=== PATIENT | male | born 1955 | race Caucasian/White ===

== ENCOUNTER → 2016-09-29 | Outpatient (CLI) | payer OTHER ==
[~2016-09-29] MED LIST: ENAL10TA88 PO
[2016-09-29 12:32] LABS: BASO % 0.2 %; BASO ABS # 0.01 K/uL (0-0.2); COMPLETE YES; EOS % 1.2 %; HEMATOCRIT 45.7 % (42-52); IG% 0.2 %; LYMPH % 19.5 %; LYMPH ABS # 1.25 K/uL (1.2-3.4); MEAN CORPUSCULAR HEMOGLOBIN 30.3 pg (25-34); MEAN CORPUSCULAR HGB CONC 33.3 g/dl (32-36); MEAN PLATELET VOLUME 9.1 fL (7.4-10.4); MONO % 6.5 %; NEUT % 72.4 %; PLATELET COUNT 214 K/uL (130-400); RED BLOOD COUNT 5.02 M/uL (4.7-6.1); WHITE BLOOD COUNT 6.42 K/uL (4.8-10.8)
[2016-09-29 13:07] LABS: ALT/SGPT 34 U/L (12-78); AST/SGOT 16 U/L (15-37); BLOOD UREA NITROGEN 18 mg/dl (7-18); CARBON DIOXIDE 29 mmol/L (21-32); CHLORIDE 108 mmol/L (98-107); GLUCOSE 99 mg/dl (70-99); POTASSIUM 4.2 mmol/L (3.5-5.1); SODIUM 140 mmol/L (136-145)
[2016-09-29 13:12] LABS: ALB/GLOB RATIO 1.2 (0.9-2); ALKALINE PHOSPHATASE 69 U/L (45-117); CHOLESTEROL 169 mg/dl (0-200); CHOLESTEROL/HDL RATIO 3.4; HDL CHOLESTEROL 50 mg/dl; LDL CHOLESTEROL CALCULATED 100 mg/dl; TRIGLYCERIDES 97 mg/dl (0-150); VERY LOW DENSITY LIPOPROT CALC 19 mg/dl
== END | disposition home or self-care (01) ==
LOC: C.LABPBG 07:52
PROVIDERS: ATTEND Physician Assistant
DX: Z00.00 Encounter for general adult medical examination without abnormal findings (principal); N40.0 Benign prostatic hyperplasia without lower urinary tract symptoms; Z12.5 Encounter for screening for malignant neoplasm of prostate; I10 Essential (primary) hypertension

== ENCOUNTER → 2016-12-05 | Outpatient (CLI) | payer OTHER ==
[2016-12-05 19:51] LABS: LYME DISEASE AB IGG NEG (NEG); LYME DISEASE AB IGM NEG (NEG)
== END | disposition home or self-care (01) ==
LOC: C.LABPBG 11:26
PROVIDERS: ATTEND Internal Medicine
DX: M79.1 Myalgia (principal)

== ENCOUNTER → 2017-01-17 | Outpatient (CLI) | payer OTHER ==
[2017-01-17 16:48] LABS: BASO % 0.1 %; BASO ABS # 0.01 K/uL (0-0.2); COMPLETE YES; EOS % 1.3 %; HEMATOCRIT 44.1 % (42-52); IG% 0.2 %; LYMPH % 18.3 %; LYMPH ABS # 1.51 K/uL (1.2-3.4); MEAN CELL VOLUME 89.1 fL (80-100); MEAN CORPUSCULAR HEMOGLOBIN 30.1 pg (25-34); MEAN CORPUSCULAR HGB CONC 33.8 g/dl (32-36); MEAN PLATELET VOLUME 8.4 fL (7.4-10.4); MONO % 6.3 %; NEUT % 73.8 %; PLATELET COUNT 198 K/uL (130-400); RED BLOOD COUNT 4.95 M/uL (4.7-6.1); WHITE BLOOD COUNT 8.23 K/uL (4.8-10.8)
[2017-01-17 17:08] LABS: BLOOD UREA NITROGEN 15 mg/dl (7-18); BUN/CREATININE RATIO 14.8 (10-20); CALCIUM 9.1 mg/dl (8.5-10.1); CARBON DIOXIDE 26 mmol/L (21-32); CHLORIDE 105 mmol/L (98-107); CREATININE 1.04 mg/dl (0.60-1.40); GLUCOSE 87 mg/dl (70-99); SODIUM 138 mmol/L (136-145)
== END | disposition home or self-care (01) ==
LOC: C.CPL 15:53
PROVIDERS: ATTEND Orthopaedic Surgery
DX: M75.122 Complete rotator cuff tear or rupture of left shoulder, not specified as traumatic (principal)

== ENCOUNTER → 2017-02-09 | Day surgery (SDC) | payer OTHER ==
[2017-01-24 08:12] VITALS: Ht 179.6 cm; Wt 110.9 kg
[~2017-02-09] VITALS: Ht 179.6 cm; Wt 110.9 kg
[~2017-02-09] MED LIST changes: +ATROPINE SULFATE 0.1 MG/ML 5ML SYR IV PRN; +BUPIVACAINE/EPINEPHRINE 0.25% 1:200,000 30 ML VIAL ONE; +CEFAZOLIN 2000MG IV PUSH 10 ML IV SCH; +ERGO500037 PO; +EpHEDrine SULFATE INJ 50 MG/ML AMP IV PRN; +EpINEphrine INJ 1MG/ML AMP 1 MG/ML AMP ONE; +HYDR-5688 PO; +KETO10TA PO; +KETOROLAC TROMETHAMINE 30 MG/ML VIAL IV. PRN; +LACTATED RINGER'S 1000ML 1,000 ML IV SCH; +LACTATED RINGER'S 1000ML 500 ML IV SCH; +LIDOCAINE HCL 1% MPF 2 ML VIAL ONE; +LIDOCAINE HCL 2% 2 ML VIAL (20MG/ML) ONE; +MELO15TA4 PO; +MIDAZOLAM HCL 1 MG/ML 2ML VIAL ONE; +ONDANSETRON INJ 2 MG/ML 2 ML VIAL IV PRN; +ONDANSETRON INJ 2 MG/ML 2 ML VIAL ONE; +OXYC-57 PO; +PROPOFOL IV EMULSION 10 MG/ML 20 ML VIAL IV ONE; +ROPIVACAINE 0.5% 5 MG/ML 30 ML VIAL ONE; +SODIUM CHLORIDE 0.9% 1000ML 1,000 ML IV SCH; +TAMS0.4C38 PO
--- NOTE | 2017-02-09 07:56 | History & Physical Bridge - [place] ---
H&P Re-Evaluation Bridge Note: I have examined the patient, reviewed the History & Physical and in the interval since the performance of the History & Physical I have noted the following changes of clinical significance: No changes noted
--- NOTE | 2017-02-09 10:12 | [facility] Post Operative Brief Note ---
Immediate Operative Summary Operative Date Feb 09, 2017. Pre-Operative Diagnosis Left Shoulder Full Thickness Rotator Cuff Tear Post-Operative Diagnosis Same Procedure(s) Performed Left Shoulder Arthroscopy, Medium Rotator Cuff Repair, Acromioplasty, Biceps Tenotomy, Distal Clavicle Resection Surgeon Dr. Randolph Vision Impaired Teacher Surgeon(s) Catalina Forman PA-C Estimated Blood Loss 5 ml Findings as above Specimens None Complication(s) None Disposition Recovery Room / PACU
--- NOTE | 2017-02-09 10:29 | Discharge Instructions-SurgCtr ---
Discharge Instructions Date of Service Feb 09, 2017. Visit Reason for Visit: Left Shoulder Full Thickness Rotator Cuff Tear Discharge Discharge Diagnosis / Problem: SAME ABOVE Discharge Goals Goal(s): Decrease discomfort, Improve function Medications Stopped Medications Name(s): DEBBY STOPPED Restart Stopped Medication(s): MAY RESTART WHEN FINISHED WITH TORADOL TAKE TORADOL EVERY 8 HOURS WITH FOOD Activity Recommendations Activity Limitations: as noted below Lifting Limitations: until after follow-up appointment Exercise/Sports Limitations: until after follow-up appointment Anesthesia . Post Anesthesia Instructions: If you have had General Anesthesia or IV Sedation: * Do not drive today. * Resume driving when surgeon permits. * Do not make important decisions or sign legal documents today. * Call surgeon for: 1. Temperature elevations greater than 101 degrees F. 2. Uncontrollable pain. 3. Excessive bleeding. 4. Persistent nausea and vomiting. 5. Medication intolerance (nausea, vomiting or rash). * For nausea and vomiting use only clear liquids such as: tea, soda, bouillon until nausea subsides, then gradually increase diet as tolerated. * If you have any concerns or questions, call your surgeon's office. If physician is unavailable and it is an emergency, call 911 or go to the nearest emergency room. . Instructions / Follow-Up Instructions / Follow-Up MEDICATIONS: * Resume previous medications unless instructed otherwise by your surgeon. * Always take pain medication on a full stomach or with food to avoid upset stomach. * Do not drink alcohol or drive while taking narcotics. * Ibuprofen or Tylenol may be taken if narcotic not needed. SPECIAL CARE INSTRUCTIONS: __ None _X_ Keep extremity elevated and iced x 48 hours; apply ice 20-30 minutes 8-10 times/day. May remove at night. __ Sling __24 hrs/day __ Remove at night _X_ Shoulder Immobilizer (MAY REMOVE AFTER 48 HOURS ONLY TO SHOWER AND FOR THERAPY) _X_ 24 hrs/day __ Remove at night _X_ Dressing __ Maintain until seen in office, may shower with plastic over site _X_ Remove dressings in 24-48 hours and then may shower _X_ Cover incisions with band-aids after showering __ Do not remove steri-strips Call physician if chills or temperature rises above 102 degrees or pain unrelieved by prescribed pain medications at . . Diet Recommendations Home Diet: no limitations Fluid Restriction: None Procedures Procedures Performed: Left Shoulder Arthroscopy, Medium Rotator Cuff Repair, Acromioplasty, Biceps Tenotomy, Distal Clavicle Resection Pending Studies Studies pending at discharge: no Work Instructions Return To Work: after follow-up Lifting Limitations: NO LIFTING WITH LEFT ARM Medical Emergencies . Who to Call and When: Medical Emergencies: If at any time you feel your situation is an emergency, please call 911 immediately. . Non-Emergent Contact Non-Emergency issues call your: Primary Care Provider Call Non-Emergent contact if: you have a fever, temperature is above 101.5 . . "Provider Documentation" section prepared by Haresh Forman. .
[2017-02-09] MEDS: HYDROmorphone INJ 1 MG/ML SYR IV PRN ×2 (10:35→10:48)
--- NOTE | 2017-02-09 10:43 | OPERATIVE REPORT ---
DATE OF OPERATION: 02/09/2017 PREOPERATIVE DIAGNOSIS: Severe external impingement, rotator cuff tear of the left shoulder. POSTOPERATIVE DIAGNOSES: Severe external impingement, rotator cuff tear and biceps tendinopathy of the left shoulder. PROCEDURE: Left total diagnostic arthroscopy with limited debridement, distal clavicle resection to include coplaning the undersurface of the clavicle, acromioplasty, medium sized rotator cuff repair and arthroscopic biceps tenodesis. SURGEON: Mitch Randolph DO. OFFICE CLERK ROUTINE: Haresh Forman PA-C, whose assistance was necessary for positioning the arm and helping with instrumentation. ANESTHESIA: General with a left interscalene nerve block. COMPLICATIONS: None. CONDITION: Stable to PACU. INDICATIONS: Mayank is a pleasant 62-year-old male who has been having a 3-year history of left shoulder pain. X-rays, MRI and clinical examination were diagnostic for a medium sized rotator cuff tear and severe external impingement. After failing conservative treatment, he elected to undergo arthroscopy. DESCRIPTION OF PROCEDURE: On 02/09/2017, he arrived at [facility] for the above procedure. He was seen in the preoperative holding area and the operative extremity was identified and signed. He was given a preoperative antibiotic and a left interscalene nerve block. He was taken back to the operating room, laid on the table in supine position and put under general anesthesia. He was then put to the beachchair position. The left shoulder was prepped and draped in sterile fashion. Time-out was done and the patient and operative extremity was properly identified. A scope was introduced in the posterior portal. Diagnostic arthroscopy showed some slight chondral changes on the far anterior humeral head. Other than that, the cartilage looked well. There was some fraying of the biceps tendon. There was some tearing of the superior labrum and some fraying of the anterior labrum. The remainder of the labrum looked intact. There was a 90% partial thickness articular tear of the supraspinatus. The infraspinatus, teres minor and subscapularis were all checked and intact. An anterior portal was made. A shaver was used to do a limited debridement of the intraarticular structures and the biceps tendon was tenotomized for later tenodesis. The scope was then put into the subacromial space. A lateral portal was made. A shaver was used to do a complete subacromial and subdeltoid bursectomy. An ablator was used to tease the coracoacromial ligament off the undersurface of the acromion and a 5-0 rm was used to complete an acromioplasty of a very large Bigliani type 3 acromion. A shaver was used to remove any excess debris and attention was turned to the rotator cuff. An additional anterolateral portal was made and Shilpa cannulas were placed in each of the lateral portals. The cuff tear was completed from the bursal side. The greater tuberosity was then prepared with a ring curette and a microfracture. The rotator cuff was then fixed with an Arthrex SpeedBridge configuration using BioComposite SwiveLock suture anchors and FiberTape. This gave a nice knotless SpeedBridge repair. The long head of the biceps tendon was tagged with an Arthrex FiberLink suture and incorporated into the anterior medial anchor to complete an arthroscopic biceps tenodesis. Attention was turned to the distal clavicle. There were large osteophytes hanging off the undersurface of the distal clavicle that were impinging upon the supraspinatus. A 5-0 rm was used to coplane the undersurface of the clavicle to open up the supraspinatus outlet. Multiple pictures were taken. The scope was placed back into the glenohumeral joint and the articular margin of the rotator cuff had been restored. Pictures were taken. Arthroscopic instruments were removed from the shoulder. Portal sites were closed with 3-0 nylon. He was then placed in a soft dressing and an abduction arm sling. He was then extubated, transferred to a [facility] and taken to the postanesthesia care unit in stable condition. He tolerated the procedure well. I attest to the content of the Intraoperative Record and any orders documented therein. Any exception s are noted below.
[2017-02-09 11:19] VITALS: TEMP 36.1
[2017-02-09] MEDS: OXYCODONE/ACETAMINOPHEN 5-325 TAB PO PRN ×2 (11:28→12:21)
[2017-02-09 12:34] VITALS: BP 113/75; PULSE 75; O2SAT 95
--- NOTE | 2017-02-09 12:40 | Anesthesiology Progress Note ---
Anesthesia Post Op Note Date & Time Feb 09, 2017 at 12:40 Vital Signs Pain Intensity: 3 Vital Signs Past 12 Hours Date Time Temp Pulse Resp B/P (MAP) Pulse Ox O2 Delivery O2 Flow Rate FiO2 02/09/17 12:34 75 16 113/75 (88) 95 Room Air 02/09/17 11:19 36.1 80 16 117/75 (89) 94 Room Air 02/09/17 11:06 36.6 77 12 156/93 95 Room Air 02/09/17 11:06 76 10 02/09/17 11:06 76 10 156/93 96 02/09/17 11:01 74 12 02/09/17 11:01 74 12 138/94 99 02/09/17 10:56 79 14 145/91 95 02/09/17 10:56 80 14 02/09/17 10:51 74 11 133/93 98 02/09/17 10:51 74 11 02/09/17 10:46 74 9 136/92 98 02/09/17 10:46 76 9 02/09/17 10:45 78 12 02/09/17 10:45 77 12 98 02/09/17 10:41 138/99 02/09/17 10:40 76 14 02/09/17 10:40 76 14 99 02/09/17 10:36 152/102 02/09/17 10:35 79 12 02/09/17 10:35 78 12 99 02/09/17 10:31 151/98 02/09/17 10:30 82 20 98 02/09/17 10:30 82 20 02/09/17 10:26 163/100 02/09/17 10:25 36.6 83 16 163/100 98 Diffusion Mask 6 02/09/17 08:52 85 02/09/17 08:52 83 16 97 02/09/17 08:51 132/93 02/09/17 08:47 81 02/09/17 08:47 81 19 97 02/09/17 08:46 138/93 02/09/17 08:45 81 02/09/17 08:45 80 18 96 02/09/17 08:44 86 20 97 02/09/17 08:44 86 02/09/17 08:44 86 02/09/17 08:44 86 20 97 12/14/17 08:43 82 19 97 12/14/17 08:43 83 12/14/17 08:42 84 12/14/17 08:42 86 23 97 12/14/17 08:41 143/91 12/14/17 08:38 87 12/14/17 08:38 86 18 96 12/14/17 08:37 82 12/14/17 08:37 82 20 96 12/14/17 08:37 82 20 96 12/14/17 08:37 82 12/14/17 08:36 148/98 12/14/17 08:34 91 19 97 12/14/17 08:34 92 12/14/17 08:33 83 12/14/17 08:33 83 24 96 12/14/17 08:32 81 17 96 12/14/17 08:32 82 12/14/17 08:31 129/87 12/14/17 08:29 84 16 97 12/14/17 08:29 84 12/14/17 08:28 87 17 97 12/14/17 08:28 86 12/14/17 08:26 141/101 12/14/17 08:23 82 12/14/17 08:23 82 19 97 12/14/17 08:22 84 19 97 12/14/17 08:22 84 12/14/17 08:21 139/96 12/14/17 08:19 84 12/14/17 08:19 84 21 98 12/14/17 08:18 82 12/14/17 08:18 82 12/14/17 08:18 83 18 99 12/14/17 08:18 83 18 99 12/14/17 08:17 83 12/14/17 08:17 84 18 99 12/14/17 08:17 83 12/14/17 08:17 84 18 99 12/14/17 08:16 135/98 12/14/17 08:16 135/98 12/14/17 08:12 86 12/14/17 08:12 86 19 97 12/14/17 08:12 86 19 97 12/14/17 08:12 86 12/14/17 08:11 145/96 12/14/17 08:10 85 19 97 12/14/17 08:10 85 12/14/17 08:09 86 12/14/17 08:09 86 21 97 12/14/17 08:06 147/102 02/09/17 08:04 81 02/09/17 08:04 81 23 98 02/09/17 08:03 89 28 98 02/09/17 08:03 91 02/09/17 08:01 151/102 02/09/17 07:58 91 0 02/09/17 07:53 92 0 02/09/17 07:48 85 0 02/09/17 07:43 87 0 02/09/17 07:38 0 02/09/17 07:07 36.9 95 22 132/93 (106) 92 Room Air Notes Mental Status: alert / awake / arousable, participated in evaluation Pt Amnestic to Procedure: Yes Nausea / Vomiting: adequately controlled Pain: adequately controlled Airway Patency, RR, SpO2: stable & adequate BP & HR: stable & adequate Hydration State: stable & adequate Anesthetic Complications: no major complications apparent
== END | disposition home or self-care (01) ==
LOC: X.SURG 06:45
PROVIDERS: ATTEND Orthopaedic Surgery
DX: M75.102 Unspecified rotator cuff tear or rupture of left shoulder, not specified as traumatic (principal); M75.42 Impingement syndrome of left shoulder; M75.22 Bicipital tendinitis, left shoulder; Z96.641 Presence of right artificial hip joint; Z98.1 Arthrodesis status; Z80.42 Family history of malignant neoplasm of prostate; Z82.3 Family history of stroke

== ENCOUNTER → 2017-06-28 | Outpatient (CLI) | payer OTHER ==
[~2017-06-28] MED LIST changes: -ATROPINE SULFATE 0.1 MG/ML 5ML SYR IV PRN; -BUPIVACAINE/EPINEPHRINE 0.25% 1:200,000 30 ML VIAL ONE; -CEFAZOLIN 2000MG IV PUSH 10 ML IV SCH; -EpHEDrine SULFATE INJ 50 MG/ML AMP IV PRN; -EpINEphrine INJ 1MG/ML AMP 1 MG/ML AMP ONE; -KETOROLAC TROMETHAMINE 30 MG/ML VIAL IV. PRN; -LACTATED RINGER'S 1000ML 1,000 ML IV SCH; -LACTATED RINGER'S 1000ML 500 ML IV SCH; -LIDOCAINE HCL 1% MPF 2 ML VIAL ONE; -LIDOCAINE HCL 2% 2 ML VIAL (20MG/ML) ONE; +MELO-84 PO; -MELO15TA4 PO; -MIDAZOLAM HCL 1 MG/ML 2ML VIAL ONE; -ONDANSETRON INJ 2 MG/ML 2 ML VIAL IV PRN; -ONDANSETRON INJ 2 MG/ML 2 ML VIAL ONE; -PROPOFOL IV EMULSION 10 MG/ML 20 ML VIAL IV ONE; -ROPIVACAINE 0.5% 5 MG/ML 30 ML VIAL ONE; -SODIUM CHLORIDE 0.9% 1000ML 1,000 ML IV SCH
--- NOTE | 2017-06-28 13:14 | DIAGNOSTIC IMAGING REPORT ---
CHEST 2 VIEWS ROUTINE CLINICAL HISTORY: Z87.09 History of acute [id number] dyspnea COMPARISON STUDY: 12/27/2012 FINDINGS: The bones soft tissues and hemidiaphragms are normal. The cardiomediastinal silhouette is normal. The lungs are clear. The pulmonary vasculature is normal. IMPRESSION: Negative chest. The above report was generated using voice recognition software. It may contain grammatical, syntax or spelling errors. Electronically signed by: Robert Quach M.D. 06/28/2017 1:13 PM Dictated Date/Time: 06/28/2017 1:12 PM
--- NOTE | 2017-06-28 13:27 | DIAGNOSTIC IMAGING REPORT ---
SINUSES-MAXILLOFACIAL W/O CT DOSE: 293.27 mGycm HISTORY: Sinusitis Z87.09 History of acute [id number] TECHNIQUE: Multiaxial CT images of the paranasal sinuses were performed and reformatted in the coronal plane without the use of contrast. A dose lowering technique was utilized adhering to the principles of ALARA. COMPARISON: None. FINDINGS: Mild mucosal thickening of the ethmoid and inferior right maxillary sinus air cells. Remaining sinuses are clear. There is soft tissue occlusion of the left ostiomeatal unit. There is a high degree of soft tissue narrowing of the right ostiomeatal unit. Moderate hyperplastic changes of the nasal turbinates are present with mild nodular change posteriorly. There is moderate nasal septal displacement to the right. Orbital margins are intact. There is no bony destructive process. The mastoid air cells are clear. The orbits are unremarkable. IMPRESSION: 1. Moderate mucosal thickening of the ethmoid and right maxillary sinuses. 2. Soft tissue occlusion left ostiomeatal unit. 3. Soft tissue narrowing right ostiomeatal unit. 4. Nasal septum is displaced to the right with hypertrophic change of the nasal turbinates bilaterally. The above report was generated using voice recognition software. It may contain grammatical, syntax or spelling errors. Electronically signed by: Robert Quach M.D. 06/28/2017 1:26 PM Dictated Date/Time: 06/28/2017 1:23 PM
== END | disposition home or self-care (01) ==
LOC: C.CTS 13:00
PROVIDERS: ATTEND Internal Medicine
DX: R06.00 Dyspnea, unspecified (principal); J01.20 Acute ethmoidal sinusitis, unspecified; J01.00 Acute maxillary sinusitis, unspecified; J34.2 Deviated nasal septum